=== PATIENT | female | born 1945 | race Caucasian/White ===

== ENCOUNTER 2024-08-08 11:00 | Emergency (ER) | payer OTHER, SELFPAY ==
[2024-08-08] VITALS (10 sets, daily range): BP systolic 98–149; BP diastolic 60–84; PULSE 74–86; BMI 35.3
[2024-08-08 11:31] LABS: % Basophils 0.4 % (0-2); % Eosinophils 0.9 % (0-6); % Lymphocytes 15.8 % (20.5-51.1); % Monocytes 5.6 % (1.7-9.3); % Neutrophils 76.3 % (42.2-75.2); Absolute Basophils 0.1 10^3/uL (0-0.2); Absolute Eosinophils 0.1 10^3/uL (0-0.7); Absolute Immature Granulocytes 0.1 10^3/uL (0-0.05); Absolute Lymphocytes 1.8 10^3/uL (1.2-3.4); Absolute Monocytes 0.7 10^3/uL (0.1-0.6); Absolute Neutrophils 8.8 10^3/uL (1.4-6.5); Hematocrit 37.5 % (37.0-47.0); Hemoglobin 12.5 g/dL (12.0-16.0); Mean Corp Hgb Conc. 33.3 g/dL (33.0-37.0); Mean Corpuscular Hgb 29.5 pg (27.0-31.0); Mean Corpuscular Volume 88.4 fL (81.0-99.0); Mean Platelet Volume 9.5 fL (7.4-10.4); Nucleated Red Blood Cells % 0 %; Platelet Count 259 10^3/uL (130-400); Red Blood Cell Count 4.24 10^6/uL (4.20-5.40); Red Cell Dist. Width 12.4 % (11.5-14.5); White Blood Cell Count 11.5 10^3/uL (4.8-10.8)
[2024-08-08 11:39] LABS: ALT (SGPT) 21 U/L (0-35); AST (SGOT) 22 U/L (14-36); Albumin 4.6 g/dl (3.5-5.0); Alkaline Phosphatase 65 U/L (38-126); Blood Urea Nitrogen 31 mg/dl (7-17); Calcium 10.5 mg/dl (8.4-10.2); Carbon Dioxide 28 mmol/L (22-30); Chloride 100 mmol/L (98-107); Glucose 127 mg/dl (70-99); Sodium 141 mmol/L (135-145); Total Bilirubin 0.5 mg/dl (0.2-1.3); Total Protein 7.7 g/dl (6.3-8.2); eGFR > 60.00
--- NOTE | 2024-08-08 13:11 | ED.GENMED ---
History of Present Illness
General
Chief Complaint: Fall
Source: patient
Exam Limitations: none
Time Seen by Provider: 08/08/24 12:07
Nursing documentation reviewed up to this point in time: agreed with
History of Present Illness
History of Present Illness:
The patient is a pleasant 70-year-old female who reports that she stood up out of bed quickly today and felt very dizzy. She reports that she fell flat on her face on carpeted floor but there was no loss of consciousness. Patient denies any
headache, nausea, vomiting and vision changes. She reports she is no longer feels dizzy. Patient denies chest pain or shortness of breath. Patient denies any recent fever or illnesses. Patient reports he did have a nosebleed that has not
stopped. She is not on any blood thinners. He has some mild soreness at the bridge of her nose, the base of her left thumb, and her right knee. Patient is primarily concerned about her right knee because she had a total right knee replacement
done this past May. Patient's systolic blood pressures is about 100 which she states is very low for her. She denies vomiting and diarrhea. She denies recent fever.
Past History
Past History
ED Past Medical History: HTN, Hypercholesterolemia, Psychiatric (anxiety) and Other (Palpitations)
ED Past Surgical History: Orthopedic
Social History
Tobacco: Non-smoker
Alcohol: Daily (1 glass of wine per night)
Drug: None
Personal:
Living: with family
Family History
Family History: Early CAD (Father had NV at age 50. Lived to age 90)
Review of Systems
Review of Systems
Allergies reviewed?: Yes
All Other Systems: ROS reviewed and negative except as documented in HPI and ROS
Constitutional: Reports no symptoms
EENT: Reports other
Respiratory: Reports no symptoms
Cardiac: Reports syncope (Presyncope, no LOC)
ABD/GI: Reports no symptoms
: Reports no symptoms
Musculoskeletal: Reports joint pain
Skin: Reports no symptoms
Neurological: Reports dizzy
Endocrine: Reports no symptoms
Hematologic/Lymphatic: Reports no symptoms
Psychiatric: Reports no symptoms
Phy Exam
Physical Exam
Physical Exam:
Physical Exam
General: no apparent distress, not acutely ill, nontender scalp throughout. Mild tenderness bridge of nose without significant ecchymoses or deformity, no active bleed of nose
Neck: supple. Nontender
Heart: s1/s2 regular rate and rhythm, no murmur. equal radial pulses. No vertebral spine tenderness. No chest wall tenderness
Lungs: no acute respiratory distress. clear bilaterally
Abdomen: normal bowel sounds. not tender. no CVAT. No ecchymoses on chest, abdomen or back.
Neuro: alert and orientedx3. no focal neurological deficits, normal speech, extraocular muscles intact, visual stringer intact, 5 out of 5 strength in all extremities without drift
Skin: Mild abrasion dorsal aspect of base of left thumb
Psychiatric: well kept. interactive and cooperative
Extremities: No bony tenderness of upper or lower extremities. Mild soft tissue tenderness of right patellar area. Strong pulses of bilateral lower extremities. Mild soft tissue tenderness of base of left thumb but full
movement of fingers and thumb and when I palpate patient's left hand, it is not bothering her.
Course
Orders/Labs/Results
Orders:
Orders
08/08/24 11:17
CMP [Comprehensive Metabolic Panel] Urgent
Complete Blood Count/With Diff Urgent
08/08/24 12:49
Electrocardiogram (*1) Urgent
Reason for Study: Vertigo / Dizzy
EKG- Treatment ONCE
08/08/24 12:54
Urinalysis Reflex To Culture Urgent
Date Specimen was Collected: 08/08/24
Time Specimen was Collected: 12:36
Urine Microscopic Reflex Cult Urgent
Urine Culture Urgent
LEONID Source: U
Specimen Description:
Date Specimen was Collected: 08/08/24
Time Specimen was Collected: 12:36
10/13/24 13:08
CT Head W/o Iv Contrast Urgent
Comment:
Reason For Exam: dizzines, fall, hit bridge of nose
Orthostatic VS- Treatment ONCE
08/08/24 13:09
0.9% Sodium Chloride 1000 ml [Nss] 1,000 ml IV BOLUS
08/08/24 14:37
Knee, Right 4 or More Views [CR Knee- Right 4 Or More View*] Urgent
Comment:
Reason For Exam: fall, R knee pain
08/08/24 16:56
Sulfamethox./Trimethoprim Ds [Bactrim Ds 800 mg/160 mg] 1 tablet PO NOW STA
08/08/24 16:58
Acetaminophen [Tylenol] 1,000 mg PO NOW STA
08/08/24 16:59
Acetaminophen [Tylenol] 1,000 mg .ROUTE .STK-MED ONE
Abnormal Lab Results
08/08/24 08/08/24
11:17 12:54
WBC 11.5 H 10^3/uL
(4.8-10.8)
Abs Immat Gran (auto) 0.1 H 10^3/uL
(0-0.05)
Absolute Neuts (auto) 8.8 H 10^3/uL
(1.4-6.5)
Absolute Monos (auto) 0.7 H 10^3/uL
(0.1-0.6)
Immature Gran % 1.0 H %
(0-0.5)
Neutrophils % 76.3 H %
(42.2-75.2)
Lymphocytes % 15.8 L %
(20.5-51.1)
BUN 31 H mg/dl
(7-17)
Glucose 127 H mg/dl
(70-99)
Calcium 10.5 H mg/dl
(8.4-10.2)
Leukocyte Esterase Rfl 1+ A
(Negative)
08/08/24 11:17
08/08/24 11:17
Vital Signs
Initial and Last Documented VS:
Initial Vital Signs
Temp Pulse Resp BP Pulse Ox
98.6 F 80 16 149/82 98
08/08/24 11:07 08/08/24 11:07 08/08/24 11:07 08/08/24 11:07 08/08/24 11:07
Last Documented Vital Signs
Temp Pulse Resp BP Pulse Ox
98.6 F 78 17 121/64 97
08/08/24 11:07 08/08/24 16:40 08/08/24 16:40 08/08/24 16:40 08/08/24 16:40
MDM/Problems Addressed
Differential Diagnosis Includes:
Nasal bone fracture, right knee contusion, orthostatic dizziness
MDM/Problems Addressed:
Patient presents with acute fall, dizziness, nasal bone pain and abrasions
Chronic conditions affecting care: HTN
Acute Exacerbation and/or Progression of Chronic Illness:
Patient is acutely hypertensive, likely due to anxiety of being in the ED and recent fall
Acute Exacerbation and/or Progression of Chronic Illness: HTN
*Radiology
Radiology exam reviewed: preliminary read by ED provider (Right knee x-ray reviewed by me. No acute fracture.) and radiology read reviewed
*Pulse Oximetry
Patient hypoxic: no
*EKG
Interpreted by ED Provider?: Yes
Interpretation: normal
Comparison EKG: no comparison EKG present
Rate: normal
Rhythm: sinus
[place]: normal axis
Interval: normal interval
QRS Pattern: normal QRS
Ischemia: no ischemia
*Powertrain Engineer Interpretation
Rate: normal
Interpretation: normal
Rhythm: sinus
*Critical Care Note
Total Time (30-74mins, 75-104mins- exclusive of procedures): Not Applicable
Data Reviewed
Review of Other/Old Records Reveals: Labs (Urine culture checked from 2019 which shows mixed brayden possible contamination)
Source: patient
Patient Management
Social determinants of health affecting care: Living situation and Strong social support
Escalation/DeEscalation of care consider admission/obs:
Patient continues to look extremely well and comfortable. She has no fever. Her blood pressure has come up nicely with IV fluids. There is no sign of toxicity or sepsis. She is smiling and fully conversational. We opted to hold off on a CAT
scan of her facial bones given that she is minimal tenderness and swelling of the bridge of her nose. She has no headache, nausea, vomiting to suggest intracranial hemorrhage. Her neurological exam is normal and there is no sign of stroke. I
suspect patient may have experienced orthostatic dizziness which caused her to fall. She has had no cardiac arrhythmias on the monitoring and evaluation advisor.
Patient reports that she did have some mild dysuria and lower abdominal pain yesterday, although she has not had any today. Her urine may suggest early UTI.
ED Attending Note
-
Portions of this chart may have been created with voice recognition software.� Occasional wrong word or��sound alike� substitutions may have occurred due to the inherent limitations of voice recognition software.
Discharge Plan
Departure
Patient Disposition: Home (Routine Discharge)
Date of Disposition: 08/08/24
Time of Disposition: 16:54
Patient with high blood pressure during this ER visit?: No
Condition: Good
Covid-19: Not Applicable
Discharge Problem:
Closed head injury, Acute dehydration, Acute UTI, Contusion of nose, Contusion of right knee
Instructions: Head Injury in Adults (DC), Contusion (DC), Dehydration, Adult ED, Urinary Tract Infection, Adult ED
Prescriptions:
New
sulfamethoxazole-trimethoprim [Bactrim DS] 800-160 mg tablet
1 tab PO BID Qty: 9 0RF
No Action
losartan 50 MG tablet
100 mg PO DAILY
metoprolol succinate 50 MG tablet extended release 24 hr
50 mg PO BID
aspirin [Aspirin Childrens] 81 MG tablet,chewable
81 mg PO DAILY
pravastatin 20 MG tablet
20 mg PO QPM
hydrochlorothiazide 25 MG tablet
25 mg PO DAILY
ezetimibe [Zetia] 10 MG tablet
10 mg PO QPM
fish oil-dha-epa 1 EACH capsule
1 ea PO DAILY
[id number] serr [Osteo Bi-Flex (5-Loxin)] 1 EACH tablet
2 ea PO DAILY
Centrum Silver Tablet
1 tab PO DAILY
ciprofloxacin HCl 500 MG tablet
500 mg PO BID Qty: 10 0RF
Referrals:
Bradley Medellin MD [Family Provider] -
Activity Restrictions/Additional Instructions:
Return for any severe headache, vomiting, chest pain or shortness of breath. Follow-up with your doctor as scheduled this Friday. Drink lots of fluids to keep yourself well-hydrated.
Interventions
Interventions:
*Risk Screen - Suicide Last Done: 08/08/24 11:07
*General Assessment Last Done: 08/08/24 11:07
*ED COVID-19 Vaccine History Last Done: 08/08/24 11:07
*Nursing Disposition Last Done: 08/08/24 17:05
ED-Musculoskeletal Assessment Last Done: 08/08/24 11:54
ED- Neurological Assessment Last Done: 08/08/24 11:54
ED-Skin Assessment Last Done: 08/08/24 11:54
Discharge Date and Time
Discharge Date/Time: 08/08/24 17:06
Print Language: POLISH
[2024-08-08 13:23] LABS: Urine Albumin Negative (Neg - Trace); Urine Bilirubin Negative (Negative); Urine Character Clear (Clear); Urine Color Yellow; Urine Glucose Negative (Negative); Urine Ketone Negative (Negative); Urine Leukocyte 1+ (Negative); Urine Nitrite Negative (Negative); Urine Occult Blood Negative (Negative); Urine Specific Gravity 1.015 (<1.030); Urine Urobilinogen Negative (Neg - 1+)
[2024-08-08] MEDS: NSS 1000 IV (13:48)
[2024-08-08 14:18] LABS: Urine Squamous Cell >30 /LPF (Few)
[2024-08-08 14:19] LABS: Urine Amorphous Seen; Urine Red Blood Cell 0-2 /HPF (0-2)
[2024-08-08] MEDS: TYLENOL 1000 MG PO (17:01)
[2024-08-08] MEDS: BACTRIM DS 800 MG/160 MG 1 TABLET PO (17:02)
== END 2024-08-08 17:06 | disposition home or self-care (01) ==
LOC: EMR 11:00
PROVIDERS: Emergency Medicine; EMERGENCY PHYSICIAN Emergency Medicine; FAMILY PHYSICIAN Family Medicine
DX: R42 Dizziness and giddiness (principal); S09.90XA Unspecified injury of head, initial encounter; S80.01XA Contusion of right knee, initial encounter; S00.33XA Contusion of nose, initial encounter; S60.312A Abrasion of left thumb, initial encounter; E86.0 Dehydration; W18.39XA Other fall on same level, initial encounter; R30.0 Dysuria; R10.30 Lower abdominal pain, unspecified; I10 Essential (primary) hypertension; E78.00 Pure hypercholesterolemia, unspecified; F41.9 Anxiety disorder, unspecified; K21.9 Gastro-esophageal reflux disease without esophagitis; M19.90 Unspecified osteoarthritis, unspecified site; Z96.651 Presence of right artificial knee joint; Z79.82 Long term (current) use of aspirin
CPT/HCPCS: 99285; 96360; 70450; 73564; 80053; 81003; 81015; 85025; 87086; 93005

== ENCOUNTER 2024-08-09 13:37 | Observation (INO) | payer OTHER, SELFPAY ==
[2024-08-09] VITALS (17 sets, daily range): BP systolic 108–159; BP diastolic 35–99; PULSE 80–81; BMI 36.0; BMI 35.4
[2024-08-09 09:19] LABS: % Basophils 0.5 % (0-2); % Eosinophils 1.2 % (0-6); % Immature Granulocytes 1.3 % (0-0.5); % Lymphocytes 16.8 % (20.5-51.1); % Monocytes 6.1 % (1.7-9.3); % Neutrophils 74.1 % (42.2-75.2); Absolute Eosinophils 0.1 10^3/uL (0-0.7); Absolute Immature Granulocytes 0.1 10^3/uL (0-0.05); Absolute Lymphocytes 1.4 10^3/uL (1.2-3.4); Absolute Monocytes 0.5 10^3/uL (0.1-0.6); Absolute Neutrophils 6.1 10^3/uL (1.4-6.5); Hematocrit 34.8 % (37.0-47.0); Hemoglobin 11.8 g/dL (12.0-16.0); Mean Corp Hgb Conc. 33.9 g/dL (33.0-37.0); Mean Corpuscular Hgb 29.8 pg (27.0-31.0); Mean Corpuscular Volume 87.9 fL (81.0-99.0); Mean Platelet Volume 9.3 fL (7.4-10.4); Nucleated Red Blood Cells % 0 %; Platelet Count 230 10^3/uL (130-400); Red Blood Cell Count 3.96 10^6/uL (4.20-5.40); Red Cell Dist. Width 12.3 % (11.5-14.5); White Blood Cell Count 8.3 10^3/uL (4.8-10.8)
--- NOTE | 2024-08-09 09:24 | ED.GENMED ---
History of Present Illness
General
Chief Complaint: Dizziness
Source: patient and records
Time Seen by Provider: 08/09/24 09:06
History of Present Illness
History of Present Illness:
78-year-old female with past medical history of hypertension, hyperlipidemia, vertigo presenting to the emergency department for evaluation of exacerbation of her vertigo stating at 2 AM she woke up this had persistent but waxing and waning symptoms
since that time. Patient was in the emergency department yesterday for lightheadedness and an accidental fall but states the lightheadedness sensation she had yesterday is very different than the vertigo she is experiencing today. Patient states
any type of movement exacerbates her symptoms as well as looking left words. Patient denies any fevers or recent illnesses, otalgia, headache, visual changes she does note dry heaving earlier today but notes nausea is currently okay. No other
concerns presently.
Past History
Past History
ED Past Medical History: HTN, Hypercholesterolemia, Psychiatric (anxiety) and Other (Palpitations)
ED Past Surgical History: Orthopedic
Social History
Tobacco: Non-smoker
Alcohol: Daily (1 glass of wine per night)
Drug: None
Personal:
Living: with family
Family History
Family History: Early CAD (Father had MS at age 50. Lived to age 90)
Review of Systems
Review of Systems
All Other Systems: ROS reviewed and negative except as documented in HPI and ROS
Phy Exam
Physical Exam
Physical Exam:
GENERAL: Alert , in no apparent distress
EYE: pupils equal and reactive, 3 mm bilateral, EOMI, faint leftward horizontal nystagmus with extraocular movements
NECK: Supple
ENT: mmm.
CARDIAC: Regular rate and rhythm, no murmur .
LUNGS: Clear breath sounds bilaterally, no acute respiratory distress, no wheezes/rales/rhonchi
ABDOMEN: Soft, without focal tenderness, no r/g, no cvat
NEUROLOGICAL: Alert and oriented, no focal neuro deficits, RICCI x 4, no ataxia, no dysmetria
SKIN: Warm and dry, skin intact.
MUSCULOSKELETAL: well perfused.
PSYCH: Normal and appropriate interaction.
Scores
Heart Failure Risk
Heart Failure Risk Score: Not Applicable
Heart Score for Chest Pain Patients
STEMI patient?: Not applicable
Withdrawal Assessment of Alcohol
Withdrawal Assessment Completed?: Not applicable
Course
Orders/Labs/Results
Orders:
Orders
08/09/24 09:02
Electrocardiogram (*1) Urgent
Reason for Study: Vertigo / Dizzy
08/09/24 09:03
EKG- Treatment ONCE
08/09/24 09:11
Complete Blood Count/With Diff Urgent
Comprehensive Metabolic Panel Urgent
08/09/24 09:20
Meclizine [Antivert] 25 mg PO NOW STA
Ondansetron Injectable [Zofran] 4 mg IV NOW STA
Physical Therapy Consult [Pt Eval And Treat] Urgent
Treatment: Vestibular treatment
Activity Level: Ambulate
08/09/24 09:34
Orthostatic VS- Treatment ONCE
08/09/24 11:44
Diazepam [Valium] 5 mg PO NOW STA
08/09/24 11:56
Scopolamine [Transderm-Scop] 1 patch TRANSDERM NOW STA
08/09/24 13:20
Admit/Transfer Patient As Directed
Co-Sign Provider:
Level of Care: Observation services
Assign to:: Telemetry
Physician / Group: [email or web address]
Diagnosis: Vertigo
Reason for Telemetry: CVA/TIA
Date to Stop Telemetry: 08/12/24
Time to Stop Telemetry: 11:00
Expected length of stay greater than two midnights?: Yes
ELOS- Estimated Length of Stay in days: 3
I certify the patient meets the requirements for IP care: Yes
08/09/24 13:21
Code Status As Directed
Resuscitation Status: Full Code
08/09/24 14:08
0.9% Sodium Chloride 500 ml [Nss] 500 ml IV 40 mls/hr
Acetaminophen [Tylenol/Feverall] 650 mg RECTAL Q4HPRN PRN
Acetaminophen [Tylenol] 650 mg PO Q4HPRN PRN
polyvinyl alcohol 1 drop BOTH EYES Q6HPRN PRN
08/09/24 14:08
Case Management Consult ONCE
Case Management Consult: Discharge Planning
Comment: stroke/tia
DIETARY CONSULT Routine
Reason for Consult: stroke/TIA
NEUROLOGY CONSULT Routine
Consulting Provider: Crow Solis
Was physician already notified: Yes
Reason for consult: Intractable recurrent vertigo despite s/pD iazepma 5mg PO, Meclizine 25mg P
[employer] Urgent
MA [place] Routine
Comment:
Reason For Exam: stroke/TIA
Recent pill cam endoscopy?: No
MA Neck With Contrast Routine
Comment:
Reason For Exam: stroke/TIA
Recent pill cam endoscopy?: No
MR Brain Without Contrast Routine
Comment:
Reason For Exam: stroke/TIA
Recent pill cam endoscopy?: No
Activity As Directed
Activity Level: With Assistance
NIH Stroke Scale As Directed
Directions: Per protocol
Comment: every shift and with any change in condition or mental status
Neurological Checks As Directed
Frequency: q4h
Additional Instructions:: q4h x 24h upon admission to the floor, then qshift & with any change in condition
and mental status
Orthostatic Vital Signs As Directed
Orthostatic VS Frequency: Now
Comment: in AM once
Patient Education As Directed
Type: Stroke education packet
Comment: provide to patient and family
Vital Signs As Directed
Frequency: Per unit guidelines
Ot Eval And Treat Routine
Pt Eval And Treat Routine
Activity Level: With Assistance
Speech Therapy Eval & Treat Routine
DX Deep Vein Thrombosis Video Routine
08/09/24 18:00
Enoxaparin Sodium [Lovenox] 40 mg SC QPM
08/09/24 20:00
Acetaminophen [Tylenol] 1,000 mg PO BID
Metoprolol Xl [Toprol Xl] 50 mg PO BID
08/09/24 22:00
Amlodipine [Norvasc] 5 mg PO HS
Aspirin Chewable [Low Strength Aspirin] 81 mg PO HS
Ezetimibe [Zetia] 10 mg PO HS
pravastatin 80 mg PO HS
08/10/24 06:00
Cardiovascular Evaluation IN AM
VerifyNow Aspirin IN AM
Pt on daily regimen OR been given initial dose of aspirin?: Yes
08/10/24 08:00
Hydrochlorothiazide [Oretic] 25 mg PO DAILY
Losartan [Cozaar] 100 mg PO DAILY
08/12/24 11:00
DC Protocol for Telemetry ONCE
Abnormal Lab Results
08/09/24
09:11
RBC 3.96 L 10^6/uL
(4.20-5.40)
Hgb 11.8 L g/dL
(12.0-16.0)
Hct 34.8 L %
(37.0-47.0)
Abs Immat Gran (auto) 0.1 H 10^3/uL
(0-0.05)
Immature Gran % 1.3 H %
(0-0.5)
Lymphocytes % 16.8 L %
(20.5-51.1)
BUN 19 H mg/dl
(7-17)
Glucose 129 H mg/dl
(70-99)
08/09/24 09:11
08/09/24 09:11
Vital Signs
Initial and Last Documented VS:
Initial Vital Signs
Temp Pulse Resp BP Pulse Ox
98.5 F 69 19 141/69 100
08/09/24 09:00 08/09/24 09:00 08/09/24 09:00 08/09/24 09:00 08/09/24 09:00
Last Documented Vital Signs
Temp Pulse Resp BP Pulse Ox
98.5 F 73 17 130/62 97
08/09/24 09:00 08/09/24 14:30 08/09/24 14:30 08/09/24 14:00 08/09/24 14:30
MDM/Problems Addressed
Differential Diagnosis Includes:
peripheral vertigo, less concern for acute CVA, orthostasis
MDM/Problems Addressed:
78-year-old female presenting to the emergency department for evaluation of vertigo that started around 2 AM, symptoms worse with any attempted movement and improved with rest/Lying flat. Seen in this ER yesterday diagnosed with a possible UTI and
lightheadedness/orthostasis. Had labs and CT done which were unremarkable. Today stating the vertigo is different than what she experienced yesterday. Based off exam of high suspicion for peripheral form of vertigo. Labs and EKG ordered. Will
treat with Antivert and Zofran as well as physical therapy consult. Will check orthostatic vital signs. Reassessment and disposition pending.
*Pulse Oximetry
Patient hypoxic: no
*Critical Care Note
Total Time (30-74mins, 75-104mins- exclusive of procedures): Not Applicable
Data Reviewed
Review of Other/Old Records Reveals: Labs and Records
Patient Management
Discussion with other providers: Hospitalist and Other
Escalation/DeEscalation of care consider admission/obs:
11:20AM - seen by PT. Minimal improvement with vestibular treatments. Will provide with scopolamine patch and PO valium. If not relief, may need to consider admit for intractable vertigo
Following scopolamine and valium patient still noted no improvement. Will admit for intractable vertigo and suspect patient will need more advanced imaging. She remains stable. Hospitalist is aware and accepts for continued evaluation and treatment
ED Attending Note
-
Portions of this chart may have been created with voice recognition software.� Occasional wrong word or��sound alike� substitutions may have occurred due to the inherent limitations of voice recognition software.
Discharge Plan
Departure
Patient Disposition: Admit
Date of Disposition: 08/09/24
Time of Disposition: 13:02
Presentation/result/management discussed w/ accepting MD/DO: Hospitalist
Discharge Problem:
Vertigo
Interventions
Interventions:
*Risk Screen - Suicide Last Done: 08/09/24 14:09
*General Assessment Last Done: 08/09/24 14:09
*Neglect/Abuse Screening Last Done: 08/09/24 14:09
ED- Fall Risk Assessment Last Done: 08/09/24 09:06
*ED COVID-19 Vaccine History Last Done: 08/09/24 14:09
*Nursing Disposition Last Done: 08/09/24 14:09
ED- Neurological Assessment Last Done: 08/09/24 09:06
ED- Cardiac Assessment Last Done: 08/09/24 09:06
ED Swallowing Screen Last Done: 08/09/24 09:35
[2024-08-09] MEDS: ANTIVERT 25 MG PO ×2 (09:36→22:03)
[2024-08-09] MEDS: ZOFRAN 4 MG IV (09:36)
[2024-08-09 09:38] LABS: ALT (SGPT) 19 U/L (0-35); AST (SGOT) 25 U/L (14-36); Albumin 4.3 g/dl (3.5-5.0); Alkaline Phosphatase 57 U/L (38-126); Blood Urea Nitrogen 19 mg/dl (7-17); Calcium 10.1 mg/dl (8.4-10.2); Carbon Dioxide 25 mmol/L (22-30); Chloride 105 mmol/L (98-107); Estimated Creatinine Clearance 66 ml/min; Glucose 129 mg/dl (70-99); Sodium 141 mmol/L (135-145); Total Bilirubin 0.6 mg/dl (0.2-1.3); eGFR > 60.00
[2024-08-09] MEDS: TRANSDERM-SCOP 1 PATCH TRANSDERM (12:13)
[2024-08-09] MEDS: VALIUM 5 MG PO (12:14)
--- NOTE | 2024-08-09 13:16 | HPS.HSE ---
Family Physician
-
Family Physician: Bradley Medellin
Chief Complaint
-
vertigo and lightheadedness
History of Present Illness
HPI
78F HX HTN, HLD, anxiety ,HX Vertigo seen at ER for evaluation of exacerbation of vertigo
- waxing and waning since 2 AM
- seen at ER yesterday for lightheadedness and an accidental fall: NEG HCT
- lightheadedness sensation she had yesterday is very different than the vertigo she is experiencing today
- any type of movement exacerbates her symptoms as well as looking left words.
Received Diazepam 5mg PO, Meclizine 25mg PO, IV Zofran 4mg, Scopolamine 1 patch but vertigo still persisit
ROS
Patient denies any fevers or recent illnesses, otalgia, headache, visual changes she does note dry heaving earlier today but notes nausea is currently okay. No other concerns presently.
Medical History
Past Medical History
Past Medical History: Reports HTN, Hypercholesterolemia, Psychiatric (anxiety ) and Other (palpitation)
Past Surgical History: Reports Orthopedic
Social History
Tobacco: Non-smoker
Alcohol: Daily (1 glass of wine per night )
Drug: None
Personal:
Living: With Family
Family History
Family History: Not pertinent
Allergies / Home Medications
Allergies reflects when Allergies were last updated in Room.
Home Medications with original date entered in Room
Allergy/Medication List:
Allergies
Allergy/AdvReac Type Severity Reaction Status Date / Time
No Known Allergies Allergy Verified 08/09/24 09:00
Home Medications
aspirin 81 mg chewable tablet (Aspirin Childrens) 81 mg PO HS 11/30/19
ezetimibe 10 mg tablet (Zetia) 10 mg PO HS 11/30/19
hydrochlorothiazide 25 mg tablet 25 mg PO DAILY 11/30/19
metoprolol succinate 50 mg tablet,extended release 24 hr 50 mg PO BID 11/30/19
sulfamethoxazole 800 mg-trimethoprim 160 mg tablet (Bactrim DS) 1 tab PO BID #9 tabs 08/08/24
acetaminophen 500 mg tablet (Tylenol Extra Strength) 1,000 mg PO BID 08/09/24
amlodipine 5 mg tablet 5 mg PO HS 08/09/24
losartan 100 mg tablet 100 mg PO DAILY 08/09/24
cgrtiaqa-fsr-nduek acid 0.4 mg-lycopene 300 mcg-lutein 250 mcg tablet (Centrum Silver) 1 tab PO DAILY 08/09/24
polyvinyl alcohol 1.4 % eye drops 1 drp BOTH EYES Q6HPRN PRN dry eyes 08/09/24
pravastatin 80 mg tablet 80 mg PO HS 08/09/24
Review of Systems
-
Constitutional: Reports No Symptoms
EENT: Reports No Symptoms
Respiratory: Reports No Symptoms
Cardiac: Reports No Symptoms
Abdomen/GI: Reports No Symptoms
: Reports No Symptoms
Musculoskeletal: Reports No Symptoms
Skin: Reports No Symptoms
Neurological: Reports No Symptoms
Endocrine: Reports No Symptoms
Hematologic/Lymphatic: Reports No Symptoms
Psych: Reports No Symptoms
Physical Exam
Vital Signs
Vital Signs
Temp Pulse Resp BP Pulse Ox
98.5 F 77 23 130/66 98
08/09/24 09:00 08/09/24 12:15 08/09/24 12:15 08/09/24 12:00 08/09/24 12:15
Physical Exam
General: Well Developed, Well Nourished and No Apparent Distress
HEENT: NormoCephalic, Moist mucous membranes and Atraumatic
Respiratory: Clear
Cardiac: S1/S2 and Regular Rhythm; No Murmur or Rub
GI: Soft, Non Tender, Non Distended and Normal Bowel Sounds; No Organomegaly
Rectal: Deferred by Provider
Musculoskeletal: No Clubbing, No Cyanosis and No Edema
Skin: No Rash
Neuro: AO x 3 and Nonfocal/grossly intact
Laboratory Results
-
08/09/24 09:11
08/09/24 09:11
Laboratory Results
Total Bilirubin 0.6 mg/dl (0.2-1.3) 08/09/24 09:11
AST 25 U/L (14-36) 08/09/24 09:11
ALT 19 U/L (0-35) 08/09/24 09:11
Alkaline Phosphatase 57 U/L (38-126) 08/09/24 09:11
Data Reviewed
-
CT Scan: Report Reviewed by me
Lab Data: Labs Reviewed by me
Impression/Plan
-
Data
Hgb 11.8 - was 12.5 on 08/08/24
BUN 19
eGFR > 60
EKG report
NORMAL SINUS RHYTHM
NORMAL ECG
WHEN COMPARED WITH ECG OF 08-AUG-2024 12:53,
NO SIGNIFICANT CHANGE WAS FOUND
HCT: No evidence of acute intracranial abnormality.
Last hospitalist admission:
ASSESSMENT & PLAN
Intractable recurrent vertigo despite s/p Diazepma 5mg PO, Meclizine 25mg PO, IV Zofran 4mg, Scopolamine 1 patch
Eval for Brain stem , VBI TIA/CVA
Initial BP marginally hypotensive
NEG HCT yesterday'
Non focal neuro exam
HX Vertigo
- NEG Ortho VSS by PT
- fall precaution
- Brain MRI in AM
- H & NA MRA
- PT/OT consult
- Neuro consulted
Benign HTN
- on Amlodipine, Losartan, HCTZ, Metoprolol
HLD
on Pravastatin and ASA
Abnormal UA ? UTI started on Bactrim yesterday at ER: Received single dose today
Denied dysuria
- c/w Bactrim and follow up UCx
- f/u BMP
DVT Px: LMWH
Code: Full code
Obs TLM
[2024-08-09] MEDS: NSS 500 IV (14:46)
--- NOTE | 2024-08-09 16:13 | PTCARENOTE ---
pt admitted from ED AOx3 c/o pain in the posterior neck r/t recent fall. C/O dizziness when standing. LCTA on RA b/l. abd soft NT. +BSx4. cont b&B. skin CDI +PP b/l, +1 B/L pedal edema.
[2024-08-09] MEDS: LOVENOX 40 MG SC (17:00)
[2024-08-09] MEDS: NSS (PRESERVATIVE FREE) 0.25 ML IV (19:20)
[2024-08-09] MEDS: ATIVAN 0.5 MG IV (19:20)
[2024-08-09] MEDS: TYLENOL 1000 MG PO (21:19)
[2024-08-09] MEDS: ZETIA 10 MG PO (21:19)
[2024-08-09] MEDS: TOPROL XL 50 MG PO (21:20)
[2024-08-09] MEDS: LOW STRENGTH ASPIRIN 81 MG PO (21:20)
[2024-08-09] MEDS: BACTRIM DS 800 MG/160 MG 1 TABLET PO (21:20)
[2024-08-09] MEDS: PRAVACHOL 80 MG PO (21:20)
[2024-08-09] MEDS: NORVASC 5 MG PO (21:20)
--- NOTE | 2024-08-09 21:41 | CON.NEURO4 ---
Consultation - Neurology 4
-
CONSULTING PHYSICIAN: Crow Solis MD(Neurology)
REFERRING PHYSICIAN: Hospitalist
DICTATED BY: Crow Solis MD
DATE/TIME OF REQUEST: 08/09/2024/
DATE/TIME OF CONSULTATION: 08/09/2024
Reason for Consultation: Dizziness
History of Present Illness:
This is a 78 year old right) handed female) who has presented to the hospital with (chief complaint) of dizziness. She gives a h/o HTN, hyperlipidemia, who had been in her usual state of health till yesterday when she became lightheaded and tripped
and fell. Subsequently she has been complaining of dizziness with room spinning sensation. The symptoms are relieved upon lying and sitting still. No hearing loss or tinnitus
Denies headaches double vision difficulty speaking swallowing no incoordination no focal weakness or numbness of face or extremities no gait impairment.
Past Medical History: HTN, HLD anxiety disorder
Surgical History:
Family History: Noncontributory
Social History: Lives at home does not smoke or use alcohol
Allergies: No known drug allergies
Home Medications: See addendum
Review of Symptoms:
Patient denies any fever, headache, chest pain, shortness of breath, GI or symptoms.
�Per the HPI.�All systems are reviewed negative except above.
Vital Signs:
The patient has a Temp37.1 C Pulse 76 Resp 16 BP 159/73 Pulse Ox 95
Physical Exam:
The patient is afebrile, heart sounds S1 and S2 are (regular , and chest is clear to auscultation bilaterally.
- If not clear, describe.
Neurologic Examination:
The patient is awake, alert and oriented x 3. She) is able to follow commands and answer questions appropriately. There is no aphasia or dysarthria.
On cranial nerve assessment, pupils are 3 mm bilateral, round and reactive to light and accommodation. Visual stringer are full. Extraocular movements are intact. Facial sensations are intact and bilaterally symmetrical, there is no facial asymmetry.
Hearing is intact bilaterally to normal conversation volume. Tongue palate and uvula are midline. Sternocleidomastoid strengths are full bilaterally.
Motor strengths are 5/5 bilateral upper and lower extremities on medical research Johnston scale. There is no drift or involuntary movement noted.
Deep tendon reflexes are 2+ bilateral upper and lower extremities and Babinski is absent bilaterally.
Sensations of pain, touch, temperature and vibration are intact and bilaterally symmetrical. There was no extinction noted on double simultaneous stimulation. Coordination is intact by finger to nose bilaterally. Rombergs positive. Gait is assisted
Lab Results: See addendum
Neuro Imaging: CT head shows atrophy small vessel disease normal ventricles
Impression:
) CAMILA STEIN is a 78 year old F who has presented to the hospital with (symptoms/chief complaint).
Differentials for the patient's presentation include:
1. Benign Positional Vertigo
2. Vertebrobasilar insufficiency
Recommendations:
1. Meclizine 25 mg TID
2. ECAsa 81mg
3. MRI Head
4. PT/OT
5. B12 levels
Patient may be discharged home following MRI scans once gait is stable
Discussed patient care with: Hospitalist
Allergies
-
Allergies
Allergy/AdvReac Type Severity Reaction Status Date / Time
No Known Allergies Allergy Verified 08/09/24 09:00
Vital Signs and Labs
-
Vital Signs and Labs:
Vital Signs
Temp Pulse Resp BP Pulse Ox
37.1 C 76 16 159/73 95
08/09/24 20:11 08/09/24 20:11 08/09/24 20:11 08/09/24 20:11 08/09/24 20:11
Lab Results
08/09/24 09:11
08/09/24 09:11
Sodium 141 mmol/L (135-145) 08/09/24 09:11
Potassium 4.0 mmol/L (3.5-5.1) 08/09/24 09:11
BUN 19 mg/dl (7-17) H 08/09/24 09:11
Glucose 129 mg/dl (70-99) H 08/09/24 09:11
Calcium 10.1 mg/dl (8.4-10.2) 08/09/24 09:11
Medications
-
Active Medications
Generic Name Dose Route Start Last Admin
Trade Name Freq PRN Reason Stop Dose Admin
Acetaminophen 1,000 mg 08/09/24 20:00 08/09/24 21:19
Acetaminophen 500 Mg Tablet PO 09/06/24 19:59 1,000 mg
BID CYNDY Administration
Acetaminophen 650 mg 08/09/24 14:08
Acetaminophen 650 Mg Rectal Suppository RECTAL 09/06/24 14:07
Q4HPRN PRN
GEIGER, mild pain, or temp >100.4F
Acetaminophen 650 mg 08/09/24 14:08
Acetaminophen 325 Mg Tablet PO 09/06/24 14:07
Q4HPRN PRN
GEIGER, mild pain, or temp >100.4F
Amlodipine Besylate 5 mg 08/09/24 22:00 08/09/24 21:20
Amlodipine 5 Mg Tablet PO 09/06/24 21:59 5 mg
HS CYNDY Administration
Artificial Tears 1 drops 08/09/24 15:47
Artificial Tears Pf (Refresh) 10 Drop Droperette BOTH EYES 09/06/24 15:46
Q6HPRN PRN
dry eyes
Aspirin 81 mg 08/09/24 22:00 08/09/24 21:20
Aspirin 81 Mg Chewable Tablet PO 09/06/24 21:59 81 mg
HS CYNDY Administration
Ezetimibe 10 mg 08/09/24 22:00 08/09/24 21:19
Ezetimibe (Zetia) 10 Mg Tablet PO 09/06/24 21:59 10 mg
HS CYNDY Administration
Enoxaparin Sodium 40 mg 08/09/24 18:00 08/09/24 17:00
Enoxaparin Sodium 40 Mg/0.4 Ml Syringe SC 09/06/24 17:59 40 mg
QPM CYNDY Administration
Hydrochlorothiazide 25 mg 08/10/24 08:00
Hydrochlorothiazide 25 Mg Tablet PO 09/07/24 07:59
DAILY CYNDY
Sodium Chloride 500 mls @ 40 mls/hr 08/09/24 14:08 08/09/24 14:46
Nss IV 500 mls
.[id number] CYNDY Administration
Losartan Potassium 100 mg 08/10/24 08:00
Losartan 100 Mg Tablet PO 09/07/24 07:59
DAILY CYNDY
Metoprolol Succinate 50 mg 08/09/24 20:00 08/09/24 21:20
Metoprolol 50 Mg Extended Release Tablet PO 09/06/24 19:59 50 mg
BID CYNDY Administration
Pravastatin Sodium 80 mg 08/09/24 22:00 08/09/24 21:20
Pravastatin 40 Mg Tablet PO 09/06/24 21:59 80 mg
HS CYNDY Administration
Sodium Chloride 0 flush 08/09/24 15:00
Sodium Chloride 0.9% (Flush) Syringe IV 09/06/24 14:59
PER PROTOCOL CYNDY
Trimethoprim/Sulfamethoxazole 1 tablet 08/09/24 20:00 08/09/24 21:20
Sulfamethoxazole (800 Mg)/Trimethoprim (160 Mg) Tablet PO 1 tablet
BID CYNDY Administration
Home Medications
�Medication �Instructions �Recorded
aspirin 81 mg chewable tablet 81 mg PO HS Blood Clot 11/30/19
(Aspirin Childrens) Prevention/Tx
ezetimibe 10 mg tablet (Zetia) 10 mg PO HS High Cholesterol 11/30/19
hydrochlorothiazide 25 mg tablet 25 mg PO DAILY Blood Pressure 11/30/19
metoprolol succinate 50 mg 50 mg PO BID Blood Pressure 11/30/19
tablet,extended release 24 hr
sulfamethoxazole 800 1 tab PO BID #9 tabs 08/08/24
mg-trimethoprim 160 mg tablet
(Bactrim DS)
acetaminophen 500 mg tablet 1,000 mg PO BID Pain 08/09/24
(Tylenol Extra Strength)
amlodipine 5 mg tablet 5 mg PO HS Blood Pressure 08/09/24
losartan 100 mg tablet 100 mg PO DAILY Blood Pressure 08/09/24
pctldlhb-gcc-btqvx acid 0.4 1 tab PO DAILY Supplement 08/09/24
mg-lycopene 300 mcg-lutein 250 mcg
tablet (Centrum Silver)
polyvinyl alcohol 1.4 % eye drops 1 drp BOTH EYES Q6HPRN PRN dry eyes 08/09/24
pravastatin 80 mg tablet 80 mg PO HS High Cholesterol 08/09/24
[2024-08-09] MEDS: ANTIVERT PO (22:03)
[2024-08-09] MEDS: MELATONIN 10 MG PO (22:03)
[2024-08-10 03:30] VITALS: BP 118/49
[2024-08-10] MEDS: NSS 500 IV ×2 (04:43→16:55)
[2024-08-10 05:05] LABS: Vitamin B12 532 pg/ml (239-931)
[2024-08-10] MEDS: ANTIVERT 25 MG PO ×3 (05:11→20:50)
[2024-08-10 07:52] VITALS: BP 130/65
[2024-08-10 08:12] LABS: HDL Cholesterol 50 mg/dl; LDL Cholesterol, Calculated 78 mg/dl; Total Cholesterol 174 mg/dl (50-199); Triglyceride 234 mg/dl (10-149); Very Low Density Lipoprotein 46 mg/dl (0-30)
[2024-08-10 08:25] LABS: VerifyNow Aspirin 442 ARU
[2024-08-10 09:01] LABS: Hepatitis C Antibody Negative (Negative)
[2024-08-10] MEDS: TYLENOL 1000 MG PO ×2 (09:04→20:43)
[2024-08-10] MEDS: BACTRIM DS 800 MG/160 MG 1 TABLET PO ×2 (09:04→20:43)
[2024-08-10] MEDS: COZAAR 100 MG PO (09:04)
[2024-08-10] MEDS: TOPROL XL 50 MG PO ×2 (09:04→20:43)
[2024-08-10] MEDS: ORETIC 25 MG PO (09:04)
--- NOTE | 2024-08-10 09:46 | PTOTSP ---
ST Consult
Received and appreciate DATA ABSTRACTOR consultation given pt's symptoms of vertigo and suspected TIA/CVA. Given negative MRI Brain results, pt passed swallow screening, pt reportedly tolerating PO intake per RN, and no other speech/language concerns (NIHSS=0),
DATA ABSTRACTOR evaluation is not indicated at this time. DATA ABSTRACTOR to sign off. Please re-consult if anything changes. Thank you.
[2024-08-10 11:14] VITALS: BP 123/63
[2024-08-10 12:58] VITALS: BP 119/52; BP 119/59; PULSE 70
--- NOTE | 2024-08-10 15:13 | W.PN.HOSP.TC ---
Today's Communication/Plan
-
cont PT/OT - f improving - d/c in AM
Assessment / Plan
Assessment / Plan
78yo F with PMHx of BPPV, HTN, anxiety came with acute onset of vertigo on movement since AM on the day of admission. Neurology evaluated and recommended MRI. Brain MRI showed no acute abnormality. MRA without hemodynamically significant stenosis,
aneurism or occlusion. Symptoms significantly improved on hydration and with meclizine.
A/P:
#BPPV
Neurology followed
Outpatient vestibular PT
ASA 81mg, meclizine PRN
Outpatient ENT if symptoms persisst
#Essential HTN
#Anxiety
#HLD
cont home meds
DVT ppx lovenox
Full code
I have spent at least 38min reviewing chart, test results, communication with consultants and direct patient care
Anticipated Discharge: Within 24 hours
Subjective/Interval History
-
Date of Service: August 10, 2024
Objective Data
-
Vital Signs:
Vital Signs
Temp Pulse Resp BP Pulse Ox
98.4 F 66 16 123/63 100
08/10/24 11:14 08/10/24 11:14 08/10/24 11:14 08/10/24 11:14 08/10/24 11:14
I&O
08/09/24 08/10/24 08/11/24
06:59 06:59 06:59
Intake Total 480 / 480
Output Total 200 / 200
Balance 280 / 280
Review of Systems
-
History Source: Patient
Neuro: Reports Dizzy
Physical Exam
-
General: No Apparent Distress
Respiratory: Clear to Auscultation
Cardiac: Regular Rhythm
GI: Soft, Nontender and Nondistended
Musculoskeletal: No Clubbing, No Cyanosis and No Edema
Neuro: Awake, Alert, Oriented, AO x 3 and No Motor Deficits
Psych: Calm
[2024-08-10 16:06] VITALS: BP 134/58
[2024-08-10] MEDS: LOVENOX 40 MG SC (16:55)
--- NOTE | 2024-08-10 16:57 | CM ---
Alert awake oriented patient who lives with her Donovan /dgt Karly in a 2 story home with 0 steps to enter and 14 steps to bed/bathroom. She is independent in activates of daily living.She does not drive .She has a walker and cane at home
.DEMPSEY letter given signed on chart.
No VN in past . No SNF hx
Pharmacy [facility]
PCP Dr Medellin
PLAN Home with possible outpt Vestibular rehab
[2024-08-10 19:23] VITALS: BP 123/68
[2024-08-10] MEDS: PRAVACHOL 80 MG PO (20:50)
[2024-08-10] MEDS: NORVASC 5 MG PO (20:50)
[2024-08-10] MEDS: ZETIA 10 MG PO (20:50)
[2024-08-10] MEDS: LOW STRENGTH ASPIRIN 81 MG PO (20:50)
[2024-08-10] MEDS: MELATONIN 10 MG PO (21:31)
[2024-08-11 00:21] VITALS: BP 147/77
--- NOTE | 2024-08-11 04:16 | DOWNTIME ---
There was a Leaky Client Procurement Inspector Downtime on 08/11/2024 from 0100 to 08/11/2024 at 0355. Downtime documentation of patient's care, including medication administrations, has been reconciled in the electronic record per guidelines. Refer to the
patient's paper chart under the miscellaneous tab to see printed paper medication records and downtime forms.
[2024-08-11 04:21] VITALS: BP 116/78
[2024-08-11 04:33] VITALS: BMI 35.6
[2024-08-11] MEDS: ANTIVERT 25 MG PO ×2 (06:11→15:22)
[2024-08-11 08:24] VITALS: BP 156/80
[2024-08-11] MEDS: TOPROL XL 50 MG PO (10:37)
[2024-08-11] MEDS: ORETIC 25 MG PO (10:37)
[2024-08-11] MEDS: BACTRIM DS 800 MG/160 MG 1 TABLET PO (10:37)
[2024-08-11] MEDS: TYLENOL 1000 MG PO (10:37)
[2024-08-11] MEDS: COZAAR 100 MG PO (10:38)
[2024-08-11 12:09] VITALS: BP 119/67
--- NOTE | 2024-08-11 12:33 | W.PN.HOSP.TC ---
Today's Communication/Plan
-
dc
Assessment / Plan
Assessment / Plan
78yo F with PMHx of BPPV, HTN, anxiety came with acute onset of vertigo on movement since AM on the day of admission. Neurology evaluated and recommended MRI. Brain MRI showed no acute abnormality. MRA without hemodynamically significant stenosis,
aneurism or occlusion. Symptoms significantly improved on hydration and with meclizine. Medically stable for d/c as agreed with neurologist
A/P:
#BPPV
Neurology followed
Outpatient vestibular PT
ASA 81mg, meclizine PRN
Outpatient ENT if symptoms persisst
#Essential HTN
#Anxiety
#HLD
cont home meds
DVT ppx lovenox
Full code
I have spent at least 38min reviewing chart, test results, communication with consultants and direct patient care
Anticipated Discharge: Today
Subjective/Interval History
-
Date of Service: August 11, 2024
Objective Data
-
Vital Signs:
Vital Signs
Temp Pulse Resp BP Pulse Ox
98.3 F 73 17 119/67 98
08/11/24 12:09 08/11/24 12:09 08/11/24 12:09 08/11/24 12:09 08/11/24 12:09
I&O
08/10/24 08/11/24 08/12/24
06:59 06:59 06:59
Intake Total 480 / 480 1020 / 1460 440 / 440
Output Total 200 / 200
Balance 280 / 280 1020 / 1460 440 / 440
Physical Exam
-
General: No Apparent Distress
HEENT: Normocephalic
Respiratory: Clear to Auscultation
GI: Soft, Nontender and Nondistended
Neuro: Awake, Alert, Oriented and AO x 3
Psych: Calm
--- NOTE | 2024-08-11 12:34 | W.DCSUMMARY ---
Discharge Summary
Discharge Data
Date of Admission: 08/09/24
Date of Discharge: 08/11/24
-
Pending Results: No
Hospital Course
78yo F with PMHx of BPPV, HTN, anxiety came with acute onset of vertigo on movement since AM on the day of admission. Neurology evaluated and recommended MRI. Brain MRI showed no acute abnormality. MRA without hemodynamically significant stenosis,
aneurism or occlusion. Symptoms significantly improved on hydration and with meclizine. Medically stable for d/c as agreed with neurologist
I have spent at least 38min preparing d/c
A/P:
#BPPV
#Essential HTN
#Anxiety
#HLD
Discharge Plan
-
Patient Disposition: Home (Routine Discharge)
Discharge Diagnosis/Procedures: BPPV
Diet: As tolerated
Activity: As tolerated
Driving Restrictions: Not until seen by your Dr
Other Services: PT and OT
Referrals:
Bradley Medellin MD [Family Provider] -
Natividad Lutz MD [Active] - in one to two weeks (for BPPV)
Prescriptions:
New
meclizine 25 mg Tablet
25 mg PO Q8HPRN PRN (Reason: dizziness) Qty: 30 0RF
Continued
metoprolol succinate 50 MG tablet extended release 24 hr
50 mg PO BID
aspirin [Aspirin Childrens] 81 MG tablet,chewable
81 mg PO HS
hydrochlorothiazide 25 MG tablet
25 mg PO DAILY
ezetimibe [Zetia] 10 MG tablet
10 mg PO HS
sulfamethoxazole-trimethoprim [Bactrim DS] 800-160 mg tablet
1 tab PO BID Qty: 9 0RF
Patient Comments:
08/09/24: Patient had not yet picked up medication, only had dose given here yesterday.
polyvinyl alcohol 1.4 % Drops
1 drp BOTH EYES Q6HPRN PRN (Reason: dry eyes)
amlodipine 5 mg Tablet
5 mg PO HS
acetaminophen [Tylenol Extra Strength] 500 mg Tablet
1,000 mg PO BID
pravastatin 80 mg Tablet
80 mg PO HS
losartan 100 mg Tablet
100 mg PO DAILY
Centrum Silver 0.4 mg-300 mcg- 250 mcg Tablet
1 tab PO DAILY
melatonin 10 mg Tablet
10 mg PO HS PRN (Reason: sleep)
Discharge Orders:
Discharge Patient (As Directed); Ordered 08/11/24
Ordered By: Lokesh Mendoza
Discharge Date and Time
Print Language: LAO
--- NOTE | 2024-08-11 14:32 | CM ---
MD entered order for discharge.
Spoke with pt in room .She said she was ready for discharge.
She said dgt Karly will drive her home.
MD gave pt Out Pt Vestibular script.
PT gave her handout.
Pt said she will schedule therapy when she gets home
PLAN Home no needs
[2024-08-11 15:58] VITALS: BP 123/53
== END 2024-08-11 16:28 | disposition home or self-care (01) ==
LOC: 3 WEST ACU 13:37
PROVIDERS: ADMITTING PHYSICIAN Internal Medicine; ATTENDING PHYSICIAN Internal Medicine; CONSULT PHYSICIAN Psychiatry & Neurology Neurology; EMERGENCY PHYSICIAN Emergency Medicine; FAMILY PHYSICIAN Family Medicine
DX: H81.10 Benign paroxysmal vertigo, unspecified ear (principal); I10 Essential (primary) hypertension; E78.00 Pure hypercholesterolemia, unspecified; R11.0 Nausea; F41.9 Anxiety disorder, unspecified; I95.9 Hypotension, unspecified; W01.0XXA Fall on same level from slipping, tripping and stumbling without subsequent striking against object, initial encounter; Y93.01 Activity, walking, marching and hiking; Y92.9 Unspecified place or not applicable; Z82.49 Family history of ischemic heart disease and other diseases of the circulatory system
CPT/HCPCS: 70544; 70548; 70551; 80053; 80061; 82607; 85025; 85576; 86803; 93005; 96374; 97112; 97116; 97166; 99285; A9585; G0378